=== PATIENT | male | born 1965 | race Caucasian/White ===

== ENCOUNTER 2021-04-25 13:03 | Emergency (ER) | payer OTHER ==
[~2021-04-25] VITALS: Ht 185.4 cm; Wt 93.9 kg
[~2021-04-25 13:03] MED LIST: NYSTATIN15 G3 TOP
[2021-04-25 14:09] VITALS: BP 127/78
== END 2021-04-25 14:10 | disposition home or self-care (01) ==
LOC: M.ERS 13:03
DX: Z20.822 Contact with and (suspected) exposure to COVID-19 (principal); Z88.8 Allergy status to other drugs, medicaments and biological substances

== ENCOUNTER → 2021-05-16 | Outpatient (CLI) | payer OTHER | LOC: M.LAB 12:24 | PROVIDERS: ATTEND Podiatrist | DX: Z20.822 Contact with and (suspected) exposure to COVID-19 (principal) ==

== ENCOUNTER → 2021-05-18 | Day surgery (SDC) | payer OTHER ==
[2021-05-18 13:05] LABS: HEMATOCRIT 44.1 % (42.0-52.0); HEMOGLOBIN 14.8 gm/dL (14.0-18.0); MCH 32.2 pg (26.0-34.0); MCHC 33.6 g/dL (28.0-37.0); MCV 95.8 fL (80.0-100.0); MPV 8.5 fl. (7.2-11.1); RBC 4.61 mil/uL (4.50-6.00); WBC 9.1 thou/uL (4.0-11.0)
[2021-05-18 13:13] LABS: CALCIUM 8.5 mg/dL (8.5-10.1); CREATININE 0.9 mg/dL (0.6-1.3); POTASSIUM 3.8 mmol/L (3.5-5.1)
--- NOTE | 2021-05-20 00:11 | OP ---
[address] [address] OPERATIVE REPORT Name: XIANG SHELDON Room: [facility]#: [id number] Admission: 05/18/21 Attend Phys: Barbara Mendieta, Discharge: Date of : 61 Report #: [id number] THIS REPORT FOR: cc: FAM - No family physician/PCP FAM - No family physician/PCP Barbara Mendieta DPM ~ DATE OF SURGERY: 05/18/2021 SURGEON: Barbara Mendieta DPM NUTRITION DIRECTOR: None. PREOPERATIVE DIAGNOSES: 1. Hallux valgus, right foot. 2. Hallux rigidus, right foot. 3. Hammertoe deformity, right foot. 4. Metatarsalgia, right foot. 5. Right foot pain. POSTOPERATIVE DIAGNOSES: 1. Hallux valgus, right foot. 2. Hallux rigidus, right foot. 3. Hammertoe deformity, right foot. 4. Metatarsalgia, right foot. 5. Right foot pain. PATHOLOGY: None. PROCEDURE PERFORMED: Multiple procedures: 1. Double osteotomy and bunionectomy, right foot. 2. Shahram osteotomy, right second metatarsal. 3. Hammertoe arthrodesis, right second toe. 4. Hammertoe arthroplasty, right 5th toe. ANESTHESIA: General with local. HEMOSTASIS: Pneumatic ankle tourniquet at 250 mmHg. ESTIMATED BLOOD LOSS: 2 mL MATERIALS USED: [employer] II implants cannulated screws, sizes 2.5 x 18 mm, 2.5 x 16 mm and a 2.0 x 14 mm as well as [employer] II 10 x 10 mm staple and a size large phalanx toe implant with K-wire, in addition 2-0 Vicryl, 4-0 Vicryl and 3-0 nylon. INJECTABLES: 20 mL of 1:1 mixture of 0.5% Marcaine plain and 1% [place] [address] OPERATIVE REPORT Name: XIANG SHELDON Room: [facility]#: [id number] Admission: 05/18/21 Attend Phys: Barbara Mendieta, Discharge: Date of : 61 Report #: [id number] was placed throughout the patient's right foot at this time. COMPLICATIONS: None. PROCEDURE IN DETAIL: The patient was brought into the operating room and placed on the operating room table in the supine position. The patient was then placed under general anesthesia at this time. A pneumatic ankle tourniquet was then placed about the patient's right ankle with adequate padding noted. Once this was completed, a local timeout was then performed with all personnel in the room and in agreement. Local anesthetic block was then placed about the patient's right foot utilizing a total of 20 mL of 1:1 mixture of 0.5% Marcaine plain and 1% lidocaine plain. The patient's right foot was then scrubbed, prepped and draped in the usual aseptic manner. The patient's right lower extremity was then exsanguinated utilizing an Esmarch bandage and a pneumatic ankle tourniquet was then inflated to 250 mmHg. Attention was then directed to the dorsal aspect of the patient's right foot where hallux valgus bunion deformity was noted to the first metatarsophalangeal joint with a very prominent dorsomedial exostosis. The patient noted to have some decreased range of motion of the site and a painful plantar callus formation to sub first metatarsal head as well as along the medial hallux interphalangeal joint. Attention was then directed to the dorsomedial aspect of the patient's right first metatarsophalangeal joint. An incision was then made encompassing the deformity at this time medially to the extensor hallucis longus tendon. Incision was made full thickness at this time with care being taken to identify and retract all vital neurovascular structures and bleeding was controlled with Bovie cauterization throughout. Incision was then carried down to the level of the bone and capsular tissue of the first metatarsophalangeal joint, which was then longitudinally incised and the periosteum and capsular structures were then reflected medially and laterally, thus fully exposing the head of the first metatarsal, neck and distal shaft of the first metatarsal as well as the base and shaft of the proximal phalanx. Examination at this time noted to have a pronounced dorsomedial and dorsal exostosis of the first metatarsal head as well as spurring noted throughout the base of the proximal phalanx. Examination of the cartilage noted to have some thinning of the cartilage throughout the first metatarsal head and base of the proximal phalanx, but without deficit of any cartilage at this time. Next, utilizing a sagittal saw, the medial eminence was then resected just medial to the medial crest of the first metatarsal head. This was then excised and passed from the operative field. Next, utilizing a K-wire through the medial aspect of the head of the first metatarsal, the K-wire was used as a guide centrally from medial aspect of the metatarsal head to the lateral aspect of the metatarsal head to act as a guide in order to both shorten the first metatarsal as well as mildly dorsiflex the metatarsal in order to reduce callus formation and pressure to the site. The K-wire was then oriented in a distal medial and plantar medial position and [address] [place] [address] OPERATIVE REPORT Name: XIANG SHELDON Room: [facility]#: [id number] Admission: 05/18/21 Attend Phys: Barbara Mendieta, Discharge: Date of : 61 Report #: [id number] then extended proximal lateral and lateral dorsal in order to accomplish this. Next, a V-type osteotomy was then placed about the patient's first metatarsal head extending into the shaft at this time, first with a dorsal cut, then with the cut plantarly through and through. The K-wire guidewire was then removed at this time and the head of the first metatarsal was then shifted laterally in order to improve corrected intermetatarsal angle at this time. It is also important to note that a lateral release was then performed intracapsular laterally at this time utilizing a #15 blade, releasing the lateral collateral ligaments and the tendon attachments laterally. Once this was all completed, fixation of the osteotomy site was then accomplished via K-wire. At this time, it was also used as the site for the screw fixation. Next, utilizing standard AO principles and techniques, two 2.5 mm cannulated [employer] screws were then placed across the osteotomy site with the most distal site being 2.5 x 18 mm and the more proximal site being 2.5 x 16 mm screw. The screws were noted to have adequate compression across the osteotomy site and the osteotomy was noted to be stable at this time. Next, any residual medial shelf was then resected utilizing a sagittal saw. Next, evaluation of the hallux abductus portion of the deformity was noted to still be residual to the site, so an Dwaine osteotomy was then performed to the proximal shaft and base of the proximal phalanx with an oblique wedge with the apex oriented proximal laterally and the base of the wedge oriented distal medially. This wedge was then removed utilizing a sagittal saw with care being taken to keep the lateral cortex intact. The edges were then reapproximated with compression at this time and the osteotomy was then fixated utilizing a [employer] II 10 mm x 10 mm staple at this time, which the holes were first drilled on either side of the osteotomy site and the staple was then placed. This osteotomy was also noted to be stable upon fixation. Evaluation of the correction of deformity was also performed at this time utilizing intraoperative fluoroscopy, which was noted to be adequate at this time and clinically was noted to offload the site of the callus at this time, with the prominence being less than prior to the osteotomy. So at this time, that surgical site was again copiously irrigated with sterile normal saline and the periosteum and capsular tissues were then reapproximated utilizing 2-0 Vicryl in a running stitch fashion. The deep tissue structures were reapproximated with 2-0 Vicryl and the subcuticular tissues were reapproximated with 4-0 Vicryl in a running stitch fashion. Attention now was directed to the patient's right second toe at the proximal interphalangeal joint where a rigid contracture was noted at this point and elongated second toe. Next, a longitudinal incision was then made over this proximal interphalangeal joint, full thickness down to the level of the tendon. The tendon and capsular structures were then tenotomized and a capsulotomy was then performed transversely and the capsular ligaments were also resected at this time utilizing a #15 blade in order to allow for mobilization and visualization of the joint. Next, utilizing a sagittal saw, the transverse osteotomy was then made just proximal to the cartilaginous head of the proximal [address] [address] OPERATIVE REPORT Name: XIANG SHELDON Room: [facility]#: [id number] Admission: 05/18/21 Attend Phys: Barbara JohnsonAshley Mendieta, Discharge: Date of : 61 Report #: [id number] phalanx as well as the base of the middle phalanx was resected and passed from the operative field at this time. Next, utilizing 1.1 K-wire, which was retrograded through the middle phalanx at this time out the distal aspect of the second toe. Initially, a size medium 10-degree phalanx implant was applied at this time; however, upon compression of the joint noted that the implant did not have adequate compression or purchase at this time, so this implant was then removed and replaced with a straight size large phalanx implant utilizing the similar technique; however, at this time, the K-wire was left into place and drilled through the remaining of the proximal phalanx in order to allow increased stability of the attempted fusion site at the proximal interphalangeal joint. Correction of the deformity of the second toe was noted to be adequate at this time as well. Attention was then directed more proximally into the foot at the second metatarsophalangeal joint where the previous incision of the second toe was then extended in an S-type incision over the second metatarsophalangeal joint at this time down to the level of subcutaneous tissue. Blunt dissection was then performed to the level of the extensor tendon at this time and the second metatarsophalangeal joint was then exposed via capsulotomy with a #15 blade at this time. Once visualization of the base of the proximal phalanx and the head of the second metatarsal was accomplished at this time. Examination of the cartilage was noted to be in good condition without discoloration, thinning or osteochondral defects. Next, a sagittal saw was then utilized at this time in order to perform a Shahram osteotomy with orientation of the sagittal saw, being dorsal distal and exiting plantar proximal at this time. Once this osteotomy was completed, the shaft and head of the metatarsal noted to translate proximally approximately 2 mm at this time. Disposition was then fixated utilizing standard AO principles and techniques for a cannulated screw at this time, so a 2.0 mm x 14 mm [employer] II screw was then placed across the osteotomy and noted to have adequate compression and stability at this time without any distraction at the osteotomy site. K-wire was also removed at this time and the dorsal lip from the translation was also resected utilizing a rongeur. Intraoperative fluoroscopy was also utilized at this time in order to evaluate shortening of positioning and correction of the second toe, which were all noted to be adequate. Surgical site was then copiously irrigated with sterile normal saline and the subcuticular tissue was then reapproximated utilizing 4-0 Vicryl in a running stitch fashion at this time. Attention at this time was then directed to the dorsal aspect of the right fifth toe at the level of the distal interphalangeal joint where 2 converging semielliptical incisions were then made at this level full thickness and the wedge of skin was then removed at this time and passed from the operative field. Tenotomy and capsulotomy was then performed at the distal interphalangeal joint with a #15 blade to expose the head of the middle phalanx and base of the distal phalanx at this time. The head of the middle phalanx was [place] [address] OPERATIVE REPORT Name: XIANG SHELDON Room: [facility]#: [id number] Admission: 05/18/21 Attend Phys: Barbara Mendieta, Discharge: Date of : 61 Report #: [id number] a sagittal saw and removed from the operative field. It is important to note that due to the deformity of the toe, the wedge of bone that was resected from the middle phalanx was done in a distal medial to proximal lateral orientation in order to allow for angulation of the deformity. Surgical site was then copiously irrigated and final images were then taken at this time. There was still some noted dorsal spurring within the fluoroscopy at this time at the distal interphalangeal joint base of the distal phalanx, which was then removed via rongeur and rasp at this time. Again, the site was copiously irrigated with sterile normal saline and the tendon was then repaired utilizing 2-0 Vicryl, which was also repaired in the second toe utilizing 2-0 Vicryl. The skin throughout all of the incisions throughout the right foot was then reapproximated utilizing 3-0 nylon in a simple suture fashion throughout. The pneumatic ankle tourniquet was also released at this time and there was a prompt hyperemic response noted throughout the patient's right foot. Foot was then cleansed with sterile normal saline and dried and the patient's foot was then dressed with Adaptic, 4 x 4 gauze, Kerlix and Grady bandage and a cap applied to the distal end of the exposed K-wire in the second toe, which is to remain in place for approximately the next 4-6 weeks. The patient tolerated the procedure well and was transported from the operating room to the recovery room with vital signs stable and vascular status intact to the right lower extremity. The patient is to have very limited weightbearing on the right lower extremity, utilizing surgical shoe at this time and to elevate and ice. He was encouraged to call with any questions or concerns and to follow up within 1 week's time. Pain prescriptions were also sent to his pharmacy at this time. <ELECTRONICALLY SIGNED> By: Barbara Mendieta DPM 05/20/21 0011 [id number] Mendieta, TONY /alden
== END | disposition home or self-care (01) ==
LOC: M.SUR 07:03
PROVIDERS: Anesthesiology; ATTEND Podiatrist
DX: M20.11 Hallux valgus (acquired), right foot (principal); M20.21 Hallux rigidus, right foot; M20.41 Other hammer toe(s) (acquired), right foot; M77.41 Metatarsalgia, right foot; M25.571 Pain in right ankle and joints of right foot; M19.90 Unspecified osteoarthritis, unspecified site; Z98.890 Other specified postprocedural states; Z79.899 Other long term (current) drug therapy